=== PATIENT | male | born 1990 | race Caucasian/White ===

== ENCOUNTER 2017-08-30 13:12 | Outpatient (RCR) | payer BC | END 2017-09-23 | disposition home or self-care (01) | LOC: WCC 13:12 | DX: L98.492 Non-pressure chronic ulcer of skin of other sites with fat layer exposed (principal); Q67.6 Pectus excavatum; L98.493 Non-pressure chronic ulcer of skin of other sites with necrosis of muscle | CPT/HCPCS: 11042; 11043; 87070; 87181; 87205; G0463 ==

== ENCOUNTER 2017-09-27 09:13 | Outpatient (RCR) | payer BC | END 2017-10-23 | disposition home or self-care (01) | LOC: WCC 09:13 | DX: L98.493 Non-pressure chronic ulcer of skin of other sites with necrosis of muscle (principal); L98.492 Non-pressure chronic ulcer of skin of other sites with fat layer exposed; Q67.6 Pectus excavatum | CPT/HCPCS: 11042; 87070; 87181; 87205 ==

== ENCOUNTER 2017-11-01 07:55 | Outpatient (RCR) | payer BC ==
[~2017-11-01] VITALS: Ht 188 cm; Wt 72.6 kg
== END 2017-11-23 | disposition home or self-care (01) ==
LOC: WCC 07:55
DX: L98.492 Non-pressure chronic ulcer of skin of other sites with fat layer exposed (principal); L98.493 Non-pressure chronic ulcer of skin of other sites with necrosis of muscle; Q67.6 Pectus excavatum
CPT/HCPCS: 11042; 87070; 87181; 87205; G0463

== ENCOUNTER 2017-12-06 08:45 | Outpatient (RCR) | payer BC | END 2017-12-24 | disposition home or self-care (01) | LOC: WCC 08:45 | DX: L98.492 Non-pressure chronic ulcer of skin of other sites with fat layer exposed (principal); L98.493 Non-pressure chronic ulcer of skin of other sites with necrosis of muscle; Q67.6 Pectus excavatum | CPT/HCPCS: 11042; G0463 ==

== ENCOUNTER 2018-01-10 09:07 | Outpatient (RCR) | payer BC | END 2018-01-23 | disposition home or self-care (01) | LOC: WCC 09:07 | DX: L98.492 Non-pressure chronic ulcer of skin of other sites with fat layer exposed (principal); L98.493 Non-pressure chronic ulcer of skin of other sites with necrosis of muscle; Q67.6 Pectus excavatum | CPT/HCPCS: 11042; 11043 ==

== ENCOUNTER 2018-01-24 13:00 | Outpatient (RCR) | payer BC ==
[2018-02-25] MEDS ORDERED: MULTIVITAMINS1 EAC2 ORAL (15:00)
[2018-02-25] MEDS ORDERED: Vit B12 PO (15:01)
[2018-02-25] MEDS ORDERED: iron PO (15:02)
[2018-02-25] MEDS ORDERED: fish oil PO (15:03)
[2018-02-25] MEDS ORDERED: Co Q 10 PO (15:04)
[2018-02-25] MEDS ORDERED: LORATADINE PO (15:05)
[2018-02-25] MEDS ORDERED: potassium PO (15:06)
== END 2018-02-23 | disposition home or self-care (01) ==
LOC: WCC 13:00
DX: L98.492 Non-pressure chronic ulcer of skin of other sites with fat layer exposed (principal); L98.493 Non-pressure chronic ulcer of skin of other sites with necrosis of muscle; Q67.6 Pectus excavatum
CPT/HCPCS: G0463 ×2

== ENCOUNTER 2018-02-07 09:04 | Outpatient (CLI) | payer BC ==
[2018-02-07 10:20] LABS: BASOPHILS % (AUTO) 1.1 % (0.0-2.0); EOSINOPHILS % (AUTO) 1.2 % (0.0-3.0); HEMATOCRIT 51.4 % (42.0-52.0); HEMOGLOBIN 17.4 G/DL (14.2-18.0); MEAN CORPUSCULAR VOLUME 84 FL (80-99); MONOCYTES % (AUTO) 7.4 % (1.0-10.0); NEUTROPHILS % (AUTO) 60.4 % (45.0-75.0); PLATELET COUNT 117 K/UL (150-450); RED BLOOD COUNT 6.12 M/UL (4.70-6.10); WHITE BLOOD COUNT 4.9 K/UL (4.8-10.8)
--- NOTE | 2018-02-07 11:15 | Diagnostic Imaging Report ---
Indication: Dyspnea Comparison: None 2 views of the chest obtained. Findings: Cardiomediastinal silhouette and pulmonary vascularity are within normal limits for age. The diaphragmatic contour is smooth and costophrenic angles are sharp. No pleural effusions are identified. The bones are unremarkable. There are probable old rib fractures on the right. Impression: No acute disease
== END 2018-02-07 11:04 | disposition home or self-care (01) ==
LOC: LAB 09:04
DX: R06.00 Dyspnea, unspecified (principal); M86.8X8 Other osteomyelitis, other site; B99.9 Unspecified infectious disease
CPT/HCPCS: 36415; 71046; 85025; 85651; 86140

== ENCOUNTER 2018-02-21 13:03 | Outpatient (CLI) | payer BC ==
[2018-02-21 13:22] LABS: EOSINOPHILS % (AUTO) 1.1 % (0.0-3.0); HEMATOCRIT 51.8 % (42.0-52.0); HEMOGLOBIN 17.1 G/DL (14.2-18.0); MEAN CORPUSCULAR VOLUME 83 FL (80-99); MONOCYTES % (AUTO) 6.6 % (1.0-10.0); NEUTROPHILS % (AUTO) 64.2 % (45.0-75.0); PLATELET COUNT 119 K/UL (150-450); RED BLOOD COUNT 6.26 M/UL (4.70-6.10); RED CELL DISTRIBUTION WIDTH 10.9 % (11.6-14.8); WHITE BLOOD COUNT 5.5 K/UL (4.8-10.8)
[2018-02-21 13:30] LABS: INR 1.1 (0.9-1.1)
[2018-02-21 13:34] LABS: ALANINE AMINOTRANSFERASE 24 U/L (12-78); ALBUMIN 3.8 G/DL (3.4-5.0); ALBUMIN/GLOBULIN RATIO 1.1 (1.0-2.7); ALKALINE PHOSPHATASE 87 U/L (46-116); ANION GAP 4 mmol/L (5-15); ASPARTATE AMINO TRANSFERASE 16 U/L (15-37); BILIRUBIN,TOTAL 0.4 MG/DL (0.2-1.0); BLOOD UREA NITROGEN 18 mg/dL (7-18); CALCIUM 9.5 MG/DL (8.5-10.1); CARBON DIOXIDE 31 MMOL/L (21-32); CHLORIDE 102 MMOL/L (98-107); CREATININE 1.2 MG/DL (0.55-1.30); POTASSIUM 4.5 MMOL/L (3.5-5.1); SODIUM 137 MMOL/L (136-145)
[2018-02-25] MEDS ORDERED: MULTIVITAMINS1 EAC2 ORAL (15:00)
[2018-02-25] MEDS ORDERED: Vit B12 PO (15:01)
[2018-02-25] MEDS ORDERED: iron PO (15:02)
[2018-02-25] MEDS ORDERED: fish oil PO (15:03)
[2018-02-25] MEDS ORDERED: Co Q 10 PO (15:04)
[2018-02-25] MEDS ORDERED: LORATADINE PO (15:05)
[2018-02-25] MEDS ORDERED: potassium PO (15:06)
== END 2018-02-21 15:03 | disposition home or self-care (01) ==
LOC: LAB 13:03
DX: T81.89XA Other complications of procedures, not elsewhere classified, initial encounter (principal); X58.XXXA Exposure to other specified factors, initial encounter
CPT/HCPCS: 36415; 80053; 85025; 85610; 85730

== ENCOUNTER 2018-02-28 05:36 | Day surgery (SDC) | payer BC ==
[~2018-02-28] VITALS: Ht 185.4 cm; Wt 74.8 kg
[2018-02-28] VITALS (12 sets, daily range): BP systolic 116–148; BP diastolic 67–97
[~2018-02-28 05:36] MED LIST: Co Q 10 PO; LORATADINE PO; MULTIVITAMINS1 EAC2 ORAL; Vit B12 PO; fish oil PO; iron PO; potassium PO
[2018-02-28] MEDS ORDERED: Sterile Water Irrig 1000ml IRRIG ONE (05:37)
[2018-02-28] MEDS ORDERED: LR 1000ml ONE (05:37)
[2018-02-28] MEDS ORDERED: Bupivacaine w/Epi 0.5% 30ml Vial INJ ONE (07:01)
--- NOTE | 2018-02-28 07:02 | Pre-Procedure Note/Attestation ---
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 I attest that, if there was a reasonable possibility of needing a blood transfusion, the patient (or the patient's legal community relations representative) was given the [facility] standardized written summary, pursuant to the Jorge Usman Blood Safety Act ([place] Health and Safety Code # 1645, as amended). I attest that I re-evaluated the patient just prior to the surgery and that there has been no change in the patient's H&P, except as documented below: Shawn Benitez MD Feb 28, 2018 07:02
[2018-02-28] MEDS ORDERED: ProvayBlue 5mg/ml 10ml amp INJ ONE (07:15)
[2018-02-28] MEDS ORDERED: Midazolam 2mg/2ml Inj ONE (07:18)
[2018-02-28] MEDS ORDERED: fentaNYL 100 mcg/2 mL IV ONE (07:18)
[2018-02-28] MEDS ORDERED: Lidocaine 1% MPF 10mg/ml 5ml ONE (07:19)
[2018-02-28] MEDS ORDERED: Propofol 200mg/20ml IV ONE (07:19)
[2018-02-28] MEDS ORDERED: Sodium Chloride 10ml vial INJ ONE (07:19)
[2018-02-28] MEDS ORDERED: Lidocaine 1% 10mg/ml/Epi 0.005mg/ml 30ml vial INJ ONE (07:50)
[2018-02-28] MEDS ORDERED: Bacitracin 50000 Units Vial ONE (08:16)
[2018-02-28] MEDS ORDERED: LR 1000ml 1,000 ML IVLG SCH (08:18)
--- NOTE | 2018-02-28 08:27 | Anethesia Preoperative Eval ---
Anesthesia Pre-op PMH/ROS General Date of Evaluation: Feb 28, 2018 Time of Evaluation: 07:15 Anesthesiologist: Irish ASA Score: ASA 1 Mallampati Score Class I : Soft palate, uvula, fauces, pillars visible Class II: Soft palate, uvula, fauces visible Class III: Soft palate, base of uvula visible Class IV: Only hard plate visible Mallampati Classification: Class II Surgeon: Eli Diagnosis: Non-healing ulcer wound Surgical Procedure: Closure of left chest wall non healing wound Family History: no anesthesia problems Allergies: Coded Allergies: POLLEN EXTRACTS (Verified Allergy, Intermediate, stuffy nose, 02/25/18) NO KNOWN DRUG ALLERGIES (Verified Allergy, Unknown, 11/11/17) Medications: see eMAR Patient NPO?: Yes NPO Date: Feb 27, 2018 NPO Time: 20:00 Past Medical History Cardiovascular: Denies: HTN, CAD, [place], valve dz, arrhythmia, other Pulmonary: Denies: asthma, COPD, CATARINO, other Gastrointestinal/Genitourinary: Denies: GERD, CRI, ESRD, other Neurologic/Psychiatric: Denies: dementia, CVA, depression/anxiety, TIA, other Endocrine: Denies: DM, hypothyroidism, steroids, other HEENT: Denies: cataract (L), cataract (R), glaucoma, ANDREAFSKI (L), ANDREAFSKI (R), other Hematology/Immune: Denies: anemia, DVT, bleeding disorder, other Musculoskeletal/Integumentary: Denies: OA, RA, DJD, DDD, edema, other PMH Narrative: Celiac disease PSxH Narrative: Surgery for pectus excavatum and revisions, bilateral herniorrhaphy Anesthesia Pre-op Phys. Exam Physician Exam Last Vital Signs Date Time Temp Pulse Resp B/P (MAP) Pulse Ox O2 Delivery O2 Flow Rate FiO2 02/28/18 06:08 Room Air 02/28/18 06:06 97.0 57 18 120/67 100 Constitutional: NAD Neurologic: CN 2-12 intact Cardiovascular: RRR, no M/R/G Respiratory: CTA Gastrointestinal: S/NT/ND Airway Exam Mallampati Score: Class II MO: full ROM: full Teeth: intact Anesthesia Pre-op A/P Labs WNL Risk Assessment & Plan Assessment: Healthy male for closure of non healing left chest wall wound Plan: GA, LMA Status Change Before Surgery: No Pre-Antibiotics Drug: Ancef 2 gm Given Within 1 Hr of Incision: Yes Time Given: 07:40 Jorge Coburn MD Feb 28, 2018 08:27
--- NOTE | 2018-02-28 08:28 | Immediate Post-Op Evaluation ---
Immediate Post-Op Evalulation Immediate Post-Op Evalulation Procedure: Closure of left chest wall non healing wound Date of Evaluation: Feb 28, 2018 Time of Evaluation: 09:35 IV Fluids: 1000 Blood Pressure Systolic: 148 Blood Pressure Diastolic: 97 Pulse Rate: 57 Respiratory Rate: 15 O2 Sat by Pulse Oximetry: 98 Temperature (Fahrenheit): 97.0 Pain Score (1-10): 0 Nausea: No Vomiting: No Complications No complication Patient Status: reacts, patent, none Hydration Status: adequate Drug: Ancef 2 gm Given Within 1 Hr of Incision: Yes Time Given: 07:40 Jorge Coburn MD Feb 28, 2018 08:28
[2018-02-28] MEDS ORDERED: Hydromorphone 0.5mg/0.5ml inj IVP PRN (08:30)
[2018-02-28] MEDS ORDERED: DiphenhydrAMINE 50mg/ml Inj IVP PRN (08:30)
--- NOTE | 2018-02-28 09:33 | 48 Hour Post Anesthesia Eval ---
Post Anesthesia Evaluation Procedure: Closure of left chest wall non healing wound Date of Evaluation: Feb 28, 2018 Time of Evaluation: 10:00 Blood Pressure Systolic: 127 0: 69 Pulse Rate: 59 Respiratory Rate: 16 O2 Sat by Pulse Oximetry: 99 Airway: patent Nausea: No Vomiting: No Pain Intensity: 1 Cardiopulmonary Status: Stable Mental Status/LOC: patient returned to baseline Follow-up Care/Observations: As per surgery Post-Anesthesia Complications: No anesthetic complication Follow-up care needed: N/A Jorge Coburn MD Feb 28, 2018 09:33
--- NOTE | 2018-02-28 10:22 | Brief Operative Note ---
Immediate Post Operative Note Operative Note Pre-op Diagnosis: Chronic non healing left lateral chest ulcer Procedure: Resection of left lateral chest ulcer, removal of foreign body (ethibond suture) , complex closure of wound defect. Post-op Diagnosis: same as pre-op Findings: other - At base of fistula was moderate sized ethibond suture with knots (likely 0 or 2-0 suture) Surgeon: Eli Anesthesiologist: Shellie Anesthesia: general, local - 27cc 1% lidocaine with epinepherine Specimen: yes Complications: none Condition: stable Fluids: IVF Estimated Blood Loss: minimal Drains: none Implant(s) used?: No Shawn Benitez MD Feb 28, 2018 10:22
--- NOTE | 2018-02-28 17:15 | Operative Note - Dictated ---
DATE OF OPERATION: 02/28/2018 SURGEON: Shawn Benitez M.D. ANESTHESIOLOGIST: Jorge Coburn M.D. PREOPERATIVE DIAGNOSIS: Chronic nonhealing left lateral chest ulcer. POSTOPERATIVE DIAGNOSIS: Chronic nonhealing left lateral chest ulcer. OPERATION: Resection of left lateral chest ulcer with fistula tract, removal of foreign body, and complex closure of wound defect. ANESTHESIA: General anesthesia. OPERATIVE INDICATIONS: This is a 27-year-old male, who has a history of pectus excavatum. He underwent repair, but approximately 10 or 11 months ago underwent removal of the bar. His right lateral chest incision healed fine. He developed an abscess on the left side and this has led to a dehiscence of his incision on the left lateral chest. He was treated in the outpatient wound center with dressings as well as the several courses of antibiotics for positive cultures of Staph aureus as well as MRSA. He was not making significant progress and so the decision was made to take the patient to the operating room for resection and closure of the ulcer. Once the patient was medically cleared, he was scheduled for this procedure. OPERATIVE PROCEDURE: The patient was seen in the preoperative area and the operative plan was again discussed and agreed upon. Operative markings were made and an IV was placed and he was taken back to the operating room. The patient is placed on the operating table in supine position. Once general anesthesia was induced, his chest and lateral chest were prepped and draped in usual sterile fashion. Following this, a time-out was performed and then the area to be excised was marked and injected with 15 mL of 1% lidocaine with 1:100,000 epinephrine. The ulcer opening was stained with methylene blue and the ulcer fistula that probed several centimeters deep was also stained with an Angiocath and 1 mL of methylene blue to aid in the dissection. At this point, an elliptical incision was made around the ulcer and dissection proceeded down to follow the ulcer as well as a fistula tract down to the level of the rib. Once the fistula probe was placed into the wound to aid in the dissection. Once the base was reached, the ulcer was excised with electrocautery and taken off the field on block. What was clearly evident once this was done, was that there was a large Ethibond suture with multiple knots at the base of this tunnel. This was grabbed with a clamp and removed. Following this, copious irrigation with antibiotic solution and saline was performed and hemostasis was carefully obtained. The tissues had to be undermined circumferentially to allow for adequate closure and there was some advancement that had to be done inferiorly to achieve a tension-free closure. The wound defect, which measured 6.5 x 4.5 x 2 cm at this point. This was closed with 2-0 PDS initially over the base of the tunnel to cover any potential deeper sutures than this, which were not visible. Following this, 2-0 PDS was used in the deep subcutaneous tissue in a simple interrupted fashion followed by 3-0 Monocryl in the deep dermis and a 4-0 Monocryl in a running subcuticular fashion. Dermabond was then placed on the incision followed by dressings and Tegaderm and the patient was then extubated and taken to the recovery room in stable condition. There were no complications. EBL was minimal. Specimen was the ulcer and tunnel as well as the suture. There were no complications. The patient is stable. Shawn Benitez M.D. DR: BLAINE JOB#: [id number] CC:
== END 2018-02-28 13:00 | disposition home or self-care (01) ==
LOC: SUR 05:36
DX: L98.499 Non-pressure chronic ulcer of skin of other sites with unspecified severity (principal); K90.0 Celiac disease
CPT/HCPCS: 11406; 13101; J0690; J1170; J2250; J2405; J2704; J3010; Q9968; 94003; 94150

== ENCOUNTER 2018-03-14 08:40 | Outpatient (RCR) | payer BC | END 2018-03-25 | disposition home or self-care (01) | LOC: WCC 08:40 | DX: L98.492 Non-pressure chronic ulcer of skin of other sites with fat layer exposed (principal); L98.493 Non-pressure chronic ulcer of skin of other sites with necrosis of muscle; Q67.6 Pectus excavatum ==